=== PATIENT | male | born 2000 | race American Indian/Alaskan Native ===

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

== ENCOUNTER 2020-07-21 04:46 | Emergency (ER) | payer MEDICAID ==
[~2020-07-21] VITALS: Ht 185.4 cm; Wt 74.5 kg
[2020-07-21 04:56] VITALS: BP 121/74
[2020-07-21] MEDS ORDERED: CLIN-97 PO (06:03)
== END 2020-07-21 06:27 | disposition home or self-care (01) ==
LOC: ER 04:47
DX: K08.89 Other specified disorders of teeth and supporting structures (principal); Z88.0 Allergy status to penicillin; Z79.2 Long term (current) use of antibiotics; Z79.899 Other long term (current) drug therapy
CPT/HCPCS: 99283

== ENCOUNTER 2022-04-02 22:06 | Emergency (ER) | payer MEDICAID ==
[~2022-04-02] VITALS: Ht 185.4 cm; Wt 68.2 kg
[~2022-04-02 22:06] MED LIST changes: +CLIN-97 PO
[2022-04-02 22:10] VITALS: BP 116/74
[2022-04-02] MEDS ORDERED: AMOX-117 PO ×2 (23:06)
[2022-04-02] MEDS ORDERED: CLIN-30 PO (23:09)
[2022-04-02] MEDS ORDERED: clindamycin 150mg capsule PO ONE (23:10)
== END 2022-04-02 23:29 | disposition home or self-care (01) ==
LOC: ER 22:06
DX: K08.89 Other specified disorders of teeth and supporting structures (principal); K04.7 Periapical abscess without sinus; F31.9 Bipolar disorder, unspecified; Z88.0 Allergy status to penicillin; Z79.899 Other long term (current) drug therapy
CPT/HCPCS: 99283

== ENCOUNTER → 2023-05-14 | Emergency (ER) | payer MEDICAID ==
[~2023-05-14] VITALS: Ht 188 cm; Wt 70.3 kg
[~2023-05-14] MED LIST changes: +DOXY-411 PO; +NAPR-56 PO; +ketorolac trometh inj. 60 MG/2 ML VIAL IM ONE
[2023-05-14 13:44] VITALS: TEMP 98.8
[2023-05-14 14:48] VITALS: BP 127/84; PULSE 73; RESP 18; O2SAT 100
== END | disposition home or self-care (01) ==
LOC: ER 12:23
DX: K04.7 Periapical abscess without sinus (principal); F41.9 Anxiety disorder, unspecified; F32.9 Major depressive disorder, single episode, unspecified; Z88.0 Allergy status to penicillin; Z79.899 Other long term (current) drug therapy
CPT/HCPCS: 99283

== ENCOUNTER 2023-06-18 18:59 | Emergency (ER) | payer MEDICAID ==
[~2023-06-18] VITALS: Ht 188 cm; Wt 70.4 kg
[~2023-06-18 18:59] MED LIST changes: -DOXY-411 PO; -NAPR-56 PO; -ketorolac trometh inj. 60 MG/2 ML VIAL IM ONE
[2023-06-18 19:04] VITALS: BP 123/76; PULSE 96; RESP 16; TEMP 99.4; O2SAT 98
[2023-06-18] MEDS ORDERED: CLIN300C54 PO (19:15)
== END 2023-06-18 19:21 | disposition home or self-care (01) ==
LOC: ER 19:01
DX: K08.89 Other specified disorders of teeth and supporting structures (principal); Z88.0 Allergy status to penicillin; Z79.2 Long term (current) use of antibiotics; Z79.1 Long term (current) use of non-steroidal anti-inflammatories (NSAID); Z79.899 Other long term (current) drug therapy
CPT/HCPCS: 99283

== ENCOUNTER 2023-06-22 06:05 | Emergency (ER) | payer MEDICAID ==
[~2023-06-22] VITALS: Ht 190.5 cm; Wt 68.0 kg
[~2023-06-22 06:05] MED LIST changes: +CLIN300C54 PO
[2023-06-22 06:13] VITALS: TEMP 97.9
[2023-06-22] MEDS: diphenhydrAMINE 50 mg/ml inj IV ONE (07:37)
[2023-06-22] MEDS: metoclopramide 5 mg/ml inj IV ONE (07:37)
[2023-06-22 07:57] LABS: BASOPHILS % (AUTO) 0.2 % (0-1); EOSINOPHILS # (AUTO) 0.1 X10'3 (0-0.9); EOSINOPHILS % (AUTO) 0.8 % (0-6); HEMATOCRIT 42.3 % (42.0-52.0); HEMOGLOBIN 13.9 g/dl (14.0-17.9); LYMPHOCYTES # (AUTO) 0.8 X10'3 (1.1-4.8); LYMPHOCYTES % (AUTO) 5.6 % (21-51); MEAN CORPUSCULAR HEMOGLOBIN 28.4 PG (27.0-31.0); MEAN CORPUSCULAR VOLUME 86.3 FL (78-98); MEAN PLATELET VOLUME 7.8 FL (7.4-10.4); MONOCYTES # (AUTO) 1.2 X10'3 (0-0.9); MONOCYTES % (AUTO) 8.4 % (2-12); NEUTROPHILS # (AUTO) 11.9 X10'3 (1.8-7.7); PLATELET COUNT 269 X10'3 (140-440); RED CELL DISTRIBUTION WIDTH 13.1 % (11.5-14.5)
[2023-06-22] MEDS: glycopyrrolate 0.2mg/ml inj IV ONE (07:57)
[2023-06-22 08:12] LABS: ALANINE AMINOTRANSFERASE 28 U/L (12-78); ALBUMIN 4.7 G/DL (3.4-5.0); ALKALINE PHOSPHATASE 79 IU/L (46-116); ANION GAP 16 (8-16); ASPARTATE AMINO TRANSFERASE 25 U/L (10-37); BILIRUBIN,TOTAL 0.9 MG/DL (0.1-1.0); BLOOD UREA NITROGEN 17 MG/DL (7-18); BUN/CREATININE RATIO 19.3 (10.0-20.0); CALCIUM 9.5 MG/DL (8.5-10.1); CHLORIDE 105 MMOL/L (99-107); CREATININE 0.88 MG/DL (0.60-1.10); GLUCOSE 129 MG/DL (70-104); LIPASE 28 U/L (16-77); POTASSIUM 3.2 MMOL/L (3.5-5.1); SODIUM 144 MMOL/L (135-145); TOTAL CARBON DIOXIDE 23.3 MMOL/L (24-32); TOTAL PROTEIN 9.3 G/DL (6.4-8.2); eCRCL 127 ML/MIN; eGFR > 90 ML/MIN
[2023-06-22] MEDS ORDERED: ONDA4TAB12 PO (09:11)
[2023-06-22 09:31] VITALS: BP 127/69; PULSE 89; RESP 16; O2SAT 99
== END 2023-06-22 09:32 | disposition home or self-care (01) ==
LOC: ER 06:06
DX: R10.84 Generalized abdominal pain (principal); R11.2 Nausea with vomiting, unspecified; R19.7 Diarrhea, unspecified; F41.9 Anxiety disorder, unspecified; F32.A Depression, unspecified; Z88.0 Allergy status to penicillin; Z79.1 Long term (current) use of non-steroidal anti-inflammatories (NSAID); Z79.899 Other long term (current) drug therapy
CPT/HCPCS: 36415; 80053; 83690; 84145; 85025; 96374; 96375; 99284; J1200; J2765; J3490; J7030; 96372